=== PATIENT | male | born 1990 | race Caucasian/White ===

== ENCOUNTER 2019-04-29 19:18 | Emergency (ER) | payer OTHER ==
[~2019-04-29] VITALS: Ht 175.3 cm; Wt 94.0 kg
[2019-04-29] MEDS ORDERED: AMOX1TAB61 PO (19:32)
[2019-04-29] MEDS ORDERED: KETOROLAC 60 MG/2 ML VIAL. IM ONE (19:45)
[2019-04-29] MEDS ORDERED: AMOXICILLIN/K CLAV 875/125MG TABLET. PO ONE (19:45)
[2019-04-29 20:00] VITALS: BP 128/52
--- NOTE | 2019-04-29 20:13 | PHYS DOC ---
Past History Past Medical History: No Pertinent History Past Surgical History: No Surgical History Alcohol Use: Occasionally Drug Use: None Adult General Chief Complaint Chief Complaint: SORE THROAT HPI HPI Patient is a 28 yo m with cc of ear pain and sore throat x 1-2 days no fever no cough or sob moderate pain throbbing no prior hx of ear infections Review of Systems Review of Systems Constitutional: Denies fever or chills [] Eyes:pos nasal congestion Cardiovascular: No additional information not addressed in HPI [] GI: Denies abdominal pain, nausea, vomiting, bloody stools or diarrhea [] : Denies dysuria or hematuria [] Musculoskeletal: Denies back pain or joint pain [] All other systems were reviewed and found to be within normal limits, except as documented in this note. Current Medications Current Medications Current Medications Medications (Trade) Dose Ordered Sig/Mo Start Time Stop Time Status Last Admin Dose Admin Amoxicillin/ Clavulanate Potassium (Augmentin 875/ 125mg) 1 tab 1X ONCE 04/29/19 19:45 04/29/19 19:46 DC 04/29/19 19:38 1 TAB Ketorolac Tromethamine (Toradol Im) 30 mg 1X ONCE 04/29/19 19:45 04/29/19 19:46 DC 04/29/19 19:38 30 MG Allergies Allergies Allergies Coded Allergies Type Severity Reaction Last Updated Verified No Known Drug Allergies 04/29/19 No Physical Exam Physical Exam Constitutional: Well developed, well nourished, no acute distress, non-toxic appearance. [] HENT: Normocephalic, atraumatic, bilateral external ears normal, oropharynx moist, no oral exudates, nose normal. [] left tm erythema with huseyin noted Eyes: PERRLA, EOMI, conjunctiva normal, no discharge. [] Neck: Normal range of motion, no tenderness, supple, no stridor. [] lad noted left side anterior one cm mild tender Abdomen: Bowel sounds normal, soft, no tenderness, no masses, no pulsatile masses. [] Skin: Warm, dry, no erythema, no rash. [] Back: No tenderness, no CVA tenderness. [] Extremities: No tenderness, no cyanosis, no clubbing, ROM intact, no edema. [] Neurologic: Alert and oriented X 3, normal motor function, normal sensory function, no focal deficits noted. [] Psychologic: Affect normal, judgement normal, mood normal. [] Current Patient Data Vital Signs Vital Signs Date Time Temp Pulse Resp B/P (MAP) Pulse Ox O2 Delivery O2 Flow Rate FiO2 04/29/19 20:00 82 18 128/52 (77) 97 Room Air 04/29/19 19:18 99.5 Lab Results Temperature (Fahrenheit): * 99.5 degrees F (97.6-99.5) Patient Temperature * 99.5 degrees F (97.5-99.5) H Temperature Source * Oral Blood Pressure Systolic * 139 mm Hg (100-140) Blood Pressure Diastolic * 81 mm Hg (60-100) Blood Pressure Mean * 100 mm Hg Blood Pressure Location * Right Arm Blood Pressure Source * Automatic Cuff Pulse Rate * 82 beats per minute (60-90) Pulse Assessment Method * Monitor EKG EKG [] Radiology/Procedures Radiology/Procedures [] Course & Med Decision Making Course & Med Decision Making Pertinent Labs and Imaging studies reviewed. (See chart for details) []evidence of mild otitis media treat with below reassurance and return prec discussed Dragon Disclaimer Dragon Disclaimer This electronic medical record was generated, in whole or in part, using a voice recognition dictation system. Departure Departure: Impression: Primary Impression: Otitis media Disposition: HOME, SELF-CARE Condition: STABLE Referrals: PCP,NO (PCP) Patient Instructions: Otitis Media, Adult Scripts Amoxicillin/Potassium Clav (AUGMENTIN 875-125 TABLET) 1 Each Tablet 1 TAB PO BID for ear for 7 Days, #14 TAB 0 Refills Prov: GLADYS LAWRENCE MD 04/29/19 GLADYS LAWRENCE MD Apr 29, 2019 20:13
== END 2019-04-29 20:00 | disposition home or self-care (01) ==
LOC: ER 19:18
DX: H66.92 Otitis media, unspecified, left ear (principal)
CPT/HCPCS: 96372; 99283; J1885

== ENCOUNTER → 2019-10-22 | Emergency (ER) | payer OTHER ==
[~2019-10-22] VITALS: Ht 175.3 cm; Wt 91.0 kg
[~2019-10-22] MED LIST: ACET500T68 PO; AMOX1TAB61 PO; HYDR-1179 PO; IBUP100O27 PO; KETOROLAC 60 MG/2 ML VIAL. IM ONE
[2019-10-22 21:50] VITALS: BP 124/80
--- NOTE | 2019-10-22 21:59 | PHYS DOC ---
Past History Past Medical History: No Pertinent History Past Surgical History: No Surgical History Alcohol Use: Occasionally Drug Use: None General Adult HPI: HPI: ".. I woke up the other morning..and had this tingle in my right arm.. 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 Pain seems to radiate down right arm along radial nerve and distal ulnar nerve areas. Patient does lift weights. Denies any recent injury. Patient denies any recent trauma during his job at the [employer]. Patient denies any recent travel outside the [facility]. Patient denies any specific ill contacts l contacts. No recent TDY's over seas. Patient is up-to-date with vaccinations. Patient's distal capillary refill equal to the left hand. Patient is right-hand dominant. Review of Systems: Review of Systems: Constitutional: Denies fever or chills Eyes: Denies change in visual acuity HENT: Denies nasal congestion or sore throat Respiratory: Denies cough or shortness of breath Cardiovascular: Denies chest pain or edema GI: Denies abdominal pain, nausea, vomiting, bloody stools or diarrhea : Denies dysuria Musculoskeletal: Denies back pain or joint pain Integument: Denies rash Neurologic: Denies headache, focal weakness . Complaints or Rt. arm sensory changes Endocrine: Denies polyuria or polydipsia Lymphatic: Denies swollen glands Psychiatric: Denies depression or anxiety Heart Score: Risk Factors: Risk Factors: DM, Current or recent (<one month) smoker, HTN, HLP, family history of CAD, obesity. Risk Scores: Score 0 - 3: 2.5% MACE over next 6 weeks - Discharge Home Score 4 - 6: 20.3% MACE over next 6 weeks - Admit for Clinical Observation Score 7 - 10: 72.7% MACE over next 6 weeks - Early Invasive Strategies Family History: Family History: Noncontributory Current Medications: Current Meds: See nursing for home meds Allergies: Allergies: Allergies Coded Allergies Type Severity Reaction Last Updated Verified No Known Drug Allergies 04/29/19 No Physical Exam: PE: Constitutional: Well developed, well nourished, mild distress, non-toxic appearance. [] HENT: Normocephalic, atraumatic, bilateral external ears normal, oropharynx moist, no oral exudates, nose normal. [] Eyes: PERRLA, EOMI, conjunctiva normal, no discharge. [] Neck: Normal range of motion, some paracervical tenderness on the right, supple, no stridor. [] Cardiovascular:Heart rate regular rhythm, no murmur [] Lungs & Thorax: Bilateral breath sounds equal apex on auscultation [] Abdomen: Bowel sounds normal, soft, no tenderness, no masses, no pulsatile masses. [] Skin: Warm, dry, no erythema, no rash. [] Back: Mild upper trapezius spasm/tenderness on right, no CVA tenderness. [] Extremities: No tenderness, no cyanosis, no clubbing, ROM intact, no edema. [] Neurologic: Alert and oriented X 3, normal motor function, normal sensory function, no focal deficits noted. Does have some tenderness on right radial nerve. No cording appreciated Psychologic: Affect anxious , judgement normal, mood normal. [] EKG: EKG: [] Radiology/Procedures: Radiology/Procedures: [][address] [place] [address] IMAGING REPORT Signed PATIENT: BRIAN EDWARDS ACCOUNT: [id number] : 1990 LOCATION: ER AGE: 28 SEX: M EXAM STATUS: REG ER ORD. PHYSICIAN: LEAH HOUSE MD REASON: Rt trap. , arm, shoulder pain- cervicle neuropathy complaints, HERNANDEZ PROCEDURE: CT HEAD AND CERVICAL SPINE WO CT Head W/O Contrast: History: Reason: Rt trap. , arm, shoulder pain- cervicle neuropathy complaints, HERNANDEZ / Spl. Instructions: / History: Comparison: none Axial images were obtained without contrast. The gr and white matter appears normal and symmetrical for the patients age. There is no mass effect, extraaxial fluid collections or hydrocephalus. There is no gross bleed. There is no focal loss of gr-white matter distinction to suggest acute ischemia, i.e. stroke. Impression: No acute findings. End impression CT C-Spine without contrast: Clinical History: Reason: Rt trap. , arm, shoulder pain- cervicle neuropathy complaints, HERNANDEZ / Spl. Instructions: / History: Technique: Axial helical images of the cervical spine were obtained without contrast, axial coronal and sagittal reconstruction was performed. Findings: There is no loss of vertebral body stature. There is no prevertebral soft tissue swelling. The vertebral bodies are well aligned. The C1-C2 relationship is normal. 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 The remaining visualized osseous structures appear normal. There is straightening of the normal cervical lordosis which can be positional or can be secondary to muscle spasm. Evaluation of the central canal is limited without contrast. Impression: No acute findings. Clinical correlation suggested. PQRS Compliance Statement: One or more of the following individualized dose reduction techniques were utilized for this examination: 1. Automated exposure control 2. Adjustment of the mA and/or kV according to patient size 3. Use of iterative reconstruction technique Electronically signed by: Zahra Crum III, MD (10/22/2019 11:08 PM) [id number] DICTATED AND SIGNED BY: ZAHRA CRUM III, MD DATE: 10/22/19 2308 CC: LEAH HOUSE MD; PCP,NO ~ Course & Med Decision Making: Course & Med Decision Making Pertinent Labs and Imaging studies reviewed. (See chart for details) Patient take Tylenol and ibuprofen as needed for discomfort. Ice packs as needed. Follow-up primary care. Reviewed ED work-up with primary care. Remarks discomfort may take Vicoprofen. Avoid improper neck positioning when sleeping. Impression: 1. 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 Possible radial nerve compression or impingement- 3. Mild torticollis- [] Dragon Disclaimer: Charly Disclaimer: This electronic medical record was generated, in whole or in part, using a voice recognition dictation system. Departure Departure: Disposition: 01 HOME/RESIDENCE PRIOR TO ADM Condition: STABLE Referrals: PCPTLYER (PCP) Scripts Acetaminophen (ACETAMINOPHEN) 500 Mg Tablet 1000 MG PO QIDPRN PRN for pain or fever, #120 TAB Prov: LEAH HOUSE MD 10/22/19 Ibuprofen (Ibuprofen) 100 Mg/5 Ml Oral.susp 600 MG PO QIDPRN PRN for PAIN, #120 LIQUID Prov: LEAH HOUSE MD 10/22/19 Hydrocodone/Ibuprofen (HYDROCODONE-IBUPROFEN 7.5-200 ) 1 Each Tablet 1 TAB PO PRN Q6HRS PRN for PAIN, #30 TAB 0 Refills Prov: LEAH HOUSE MD 10/22/19 Dragon Disclaimer This chart was dictated in whole or in part using Voice Recognition software in a busy, high-work load, and often noisy Emergency Department environment. It may contain unintended and wholly unrecognized errors or omissions. LEAH HOUSE MD Oct 22, 2019 21:59
--- NOTE | 2019-10-22 23:11 | RAD ---
CT Head W/O Contrast: History: Reason: Rt trap. , arm, shoulder pain- cervicle neuropathy complaints, HERNANDEZ / Spl. Instructions: / History: Comparison: none Axial images were obtained without contrast. The gr and white matter appears normal and symmetrical for the patients age. There is no mass effect, extraaxial fluid collections or hydrocephalus. There is no gross bleed. There is no focal loss of gr-white matter distinction to suggest acute ischemia, i.e. stroke. Impression: No acute findings. End impression CT C-Spine without contrast: Clinical History: Reason: Rt trap. , arm, shoulder pain- cervicle neuropathy complaints, HERNANDEZ / Spl. Instructions: / History: Technique: Axial helical images of the cervical spine were obtained without contrast, axial coronal and sagittal reconstruction was performed. Findings: There is no loss of vertebral body stature. There is no prevertebral soft tissue swelling. The vertebral bodies are well aligned. The C1-C2 relationship is normal. 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 The remaining visualized osseous structures appear normal. There is straightening of the normal cervical lordosis which can be positional or can be secondary to muscle spasm. Evaluation of the central canal is limited without contrast. Impression: No acute findings. Clinical correlation suggested. PQRS Compliance Statement: One or more of the following individualized dose reduction techniques were utilized for this examination: 1. Automated exposure control 2. Adjustment of the mA and/or kV according to patient size 3. Use of iterative reconstruction technique Electronically signed by: Gui Cameron III, MD (10/22/2019 11:08 PM) [id number]
== END ==
LOC: ER 21:50
DX: G54.2 Cervical root disorders, not elsewhere classified (principal); M43.6 Torticollis; M79.601 Pain in right arm; R20.0 Anesthesia of skin
CPT/HCPCS: 70450; 72125; 99285